=== PATIENT | female | born 1975 | race Caucasian/White ===

== ENCOUNTER 2018-10-13 09:37 | Emergency (ER) | payer SELFPAY ==
[~2018-10-13] VITALS: Ht 152.4 cm; Wt 65.8 kg
[2018-10-13] MEDS ORDERED: Robaxin500 MG PO (10:24)
== END 2018-10-13 10:56 | disposition home or self-care (01) ==
LOC: ER 09:37
DX: S46.911A Strain of unspecified muscle, fascia and tendon at shoulder and upper arm level, right arm, initial encounter (principal); M62.838 Other muscle spasm; Z79.899 Other long term (current) drug therapy; E78.5 Hyperlipidemia, unspecified; F17.210 Nicotine dependence, cigarettes, uncomplicated; X58.XXXA Exposure to other specified factors, initial encounter
CPT/HCPCS: 96372; 99283-25; J1885